=== PATIENT | male | born 1945 | race Caucasian/White ===

== ENCOUNTER 2021-11-27 11:54 | Outpatient (CLI) | payer MEDICARE, BC ==
[2021-11-27 21:07] LABS: SARS-CoV-2 PCR by NAA Not Detected (NotDetected)
== END 2021-11-27 11:55 | disposition home or self-care (01) ==
LOC: CSHLAB 11:54
PROVIDERS: ATTEND Internal Medicine Gastroenterology
DX: Z20.822 Contact with and (suspected) exposure to COVID-19 (principal); K63.5 Polyp of colon
CPT/HCPCS: U0003; U0005

== ENCOUNTER 2021-12-02 05:59 | Day surgery (SDC) | payer MEDICARE, BC ==
[2021-11-21 14:19] VITALS: BMI 38.1
[2021-12-02] MEDS ORDERED: PROPOFOL 40 ML ONE (06:52)
[2021-12-02] MEDS ORDERED: Lidocaine 2% MPF 10 ML AMP (For Epidural Use) ONE (06:52)
[2021-12-02] MEDS ORDERED: Lidocaine 1% MPF 2 ML VIAL ONE (07:09)
[2021-12-02] MEDS ORDERED: ePHEDrine Sulfate 50 MG/10 ML VIAL ONE (08:16)
== END 2021-12-02 09:30 | disposition home or self-care (01) ==
LOC: CSHSDC 05:59
PROVIDERS: ATTEND Internal Medicine Gastroenterology
PROC: 0DBK8ZZ Excision of Ascending Colon, Via Natural or Artificial Opening Endoscopic (ICD-10-PCS; principal; 2021-12-02)
PROC: 0DBL8ZZ Excision of Transverse Colon, Via Natural or Artificial Opening Endoscopic (ICD-10-PCS; 2021-12-02)
DX: Z12.11 Encounter for screening for malignant neoplasm of colon (principal); D12.2 Benign neoplasm of ascending colon; D12.5 Benign neoplasm of sigmoid colon; D12.3 Benign neoplasm of transverse colon; K57.30 Diverticulosis of large intestine without perforation or abscess without bleeding; K64.9 Unspecified hemorrhoids; I10 Essential (primary) hypertension; E78.5 Hyperlipidemia, unspecified
CPT/HCPCS: 88305; J2704